=== PATIENT | female | born 1960 | race Caucasian/White ===

== ENCOUNTER → 2018-12-24 08:20 | Outpatient (CLI) | payer BC | END | disposition home or self-care (01) | LOC: D.MRI 08:20 | DX: M25.562 Pain in left knee (principal) ==

== ENCOUNTER → 2019-10-14 20:20 | Outpatient (CLI) | payer MEDICARE | END | disposition home or self-care (01) | LOC: D.LABREF 20:20 | PROVIDERS: ATTEND Internal Medicine | DX: R31.9 Hematuria, unspecified (principal) ==

== ENCOUNTER 2019-11-05 21:17 | Emergency (ER) | payer MEDICARE, OTHER ==
[~2019-11-05] VITALS: Ht 165.1 cm; Wt 109.1 kg
[2019-11-05 21:41] VITALS: Ht 165.1 cm; Wt 109.1 kg
[2019-11-05] MEDS ORDERED: CLEOCIN HCL300 MG PO (21:42)
[2019-11-05] MEDS ORDERED: ADDERALL 10 MG10 MG PO (21:42)
[2019-11-05] MEDS ORDERED: CELEBREX50 MG PO (21:42)
[2019-11-05] MEDS ORDERED: GABAPENTIN300 MG PO (21:42)
[2019-11-05] MEDS ORDERED: LEVOXYL25 MCG PO (21:43)
[2019-11-05] MEDS ORDERED: MUSCLE RELAXER (21:43)
[2019-11-05] MEDS ORDERED: [UNRECOGNIZED DRUG - REMARK] (21:43)
[2019-11-06 01:00] VITALS: BP 187/102
== END 2019-11-06 01:00 | disposition home or self-care (01) ==
LOC: D.ER 21:17
DX: M27.2 Inflammatory conditions of jaws (principal); K04.7 Periapical abscess without sinus